=== PATIENT | female | born 1965 | race African-American/Black ===

== ENCOUNTER 2021-07-20 14:31 | Emergency (ER) | payer BC ==
[2021-07-20 14:53] VITALS: BP 142/91; PULSE 94; TEMP 98.2; BMI 31.4
[2021-07-20] MEDS ORDERED: ACETAMINOPHEN 500 MG TABLET (FP) PO ONE (16:47)
[2021-07-20] MEDS ORDERED: ACETAMINOPHEN 500 MG TABLET (FP) ONE (16:53)
== END 2021-07-20 18:22 | disposition home or self-care (01) ==
LOC: JERFT 14:31 → JER 14:31 → JERFT 18:22
DX: M79.651 Pain in right thigh (principal)
CPT/HCPCS: 93971-TC; 99283-25